=== PATIENT | female | born 1990 | race African-American/Black ===

== ENCOUNTER 2018-05-26 02:45 | Emergency (ER) | payer OTHER ==
--- NOTE | 2018-05-26 03:56 | PDOC ---
Attending Attestation - Resident Resident Name: Josesito Barber - ED Attending Attestation I have performed the following: I have examined & evaluated the patient, The case was reviewed & discussed with the resident, I agree w/resident's findings & plan
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
[2018-05-26] MEDS ORDERED: KETOROLAC TROMETHAMINE 30 MG/1 ML VIAL IVPUSH ONE (04:20)
[2018-05-26] MEDS ORDERED: SODIUM CHLORIDE 1,000 ML IV STA (04:20)
[2018-05-26] MEDS ORDERED: ONDANSETRON 4 MG/2 ML VIAL IVPUSH ONE (04:21)
[2018-05-26] MEDS ORDERED: KETOROLAC TROMETHAMINE 30 MG/1 ML VIAL ONE (04:40)
[2018-05-26] MEDS ORDERED: ONDANSETRON 4 MG/2 ML VIAL ONE (04:40)
[2018-05-26 04:53] LABS: HEMATOCRIT 40.7 % (32.4-45.2); HEMOGLOBIN 14.3 GM/dL (10.7-15.3); LYMPH % 4.9 % (8-40); MCH 29.9 pg (25.7-33.7); MCHC 35.1 g/dl (32.0-36.0); MEAN CELL VOLUME 85.2 fl (80-96); MEAN PLT VOLUME 8.3 fl (7.5-11.1); MONO % 6.3 % (3.8-10.2); NEUT % 88.8 % (42.8-82.8); PLATELET COUNT 344 K/MM3 (134-434); RBC 4.77 M/mm3 (3.60-5.2); RDW 13.8 % (11.6-15.6); WHITE BLOOD COUNT 10.9 K/mm3 (4.0-10.0)
[2018-05-26 05:06] VITALS: TEMP 97.3; BMI 26.1
[2018-05-26 05:17] LABS: ALBUMIN 4.2 g/dl (3.4-5.0); ALK PHOS 53 U/L (45-117); ANION GAP 11 MMOL/L (8-16); BILIRUBIN,TOTAL 0.6 mg/dL (0.2-1); BLOOD UREA NITROGEN 14 mg/dL (7-18); CHLORIDE 102 mmol/L (98-107); CO2 24 mmol/L (21-32); CREATININE 0.7 mg/dL (0.55-1.3); GLUCOSE,RANDOM 123 mg/dL (74-106); MAGNESIUM 2.1 mg/dL (1.8-2.4); POTASSIUM 4.1 mmol/L (3.5-5.1); SGOT/AST 22 U/L (15-37); SGPT/ALT 25 U/L (13-61); SODIUM 137 mmol/L (136-145); TOT PROT 7.9 g/dl (6.4-8.2)
[2018-05-26 06:22] VITALS: BP 122/68; PULSE 80
== END 2018-05-26 06:00 | disposition home or self-care (01) ==
LOC: JER 02:45
PROC: 3E033GC Introduction of Other Therapeutic Substance into Peripheral Vein, Percutaneous Approach (ICD-10-PCS; principal; 2018-05-26)
PROC: 3E0333Z Introduction of Anti-inflammatory into Peripheral Vein, Percutaneous Approach (ICD-10-PCS; 2018-05-26)
DX: K52.9 Noninfective gastroenteritis and colitis, unspecified (principal)
CPT/HCPCS: 36415; 80053; 83605; 83735; 84703; 85025; 99282-25; J7030

== ENCOUNTER 2023-03-13 13:00 | Emergency (ER) | payer BC ==
[2023-03-13 13:09] VITALS: BP 135/82; PULSE 90; RESP 96; TEMP 98; BMI 25.7
[2023-03-13] MEDS ORDERED: IBUPROFEN 600 MG TABLET (FP) PO ONE ×2 (14:39→14:54)
[2023-03-13] MEDS ORDERED: ACETAMINOPHEN 500 MG TABLET (FP) PO ONE (14:39)
[2023-03-13] MEDS ORDERED: ACETAMINOPHEN 500 MG TABLET (FP) ONE (14:55)
== END 2023-03-13 15:00 | disposition home or self-care (01) ==
LOC: JERFT 13:00
DX: R22.41 Localized swelling, mass and lump, right lower limb (principal); M25.561 Pain in right knee; G89.29 Other chronic pain
CPT/HCPCS: 73562-TC-RT-FY; 99283-25